=== PATIENT | female | born 1975 | race American Indian/Alaskan Native ===

== ENCOUNTER 2017-10-03 06:06 | Emergency (ER) | payer OTHER ==
[2017-10-03] MEDS ORDERED: NORCO 5/325 PO ONE (07:45)
[2017-10-03] MEDS ORDERED: ZOFRAN ODT PO ONE (07:45)
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
[2017-10-03 08:45] LABS: HCG Qualitative,Urine Negative (Negative)
[2017-10-03] MEDS ORDERED: MOTRIN PO ONE ×2 (09:43→09:52)
--- NOTE | 2017-10-03 09:47 | XRay Report ---
LEFT SHOULDER: History: Left shoulder pain. Routine views demonstrate normal bony and soft tissue structures with normal joint alignment of the shoulder. IMPRESSION: Normal study.
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
[2017-10-03] MEDS ORDERED: FLEXERIL PO ONE (09:52)
[2017-10-03] MEDS ORDERED: MOTRIN ONE (09:53)
[2017-10-03 10:35] VITALS: BP 121/87
== END 2017-10-03 10:34 | disposition home or self-care (01) ==
LOC: ED 06:06
DX: S43.402A Unspecified sprain of left shoulder joint, initial encounter (principal); I10 Essential (primary) hypertension; M79.1 Myalgia; E11.9 Type 2 diabetes mellitus without complications; Z90.49 Acquired absence of other specified parts of digestive tract; V89.2XXA Person injured in unspecified motor-vehicle accident, traffic, initial encounter; Y93.89 Activity, other specified; Y92.89 Other specified places as the place of occurrence of the external cause; Y99.8 Other external cause status
CPT/HCPCS: 70450; 72125; 81025; Q0162